=== PATIENT | male | born 2000 | race Caucasian/White ===

== ENCOUNTER 2019-06-29 00:33 | Emergency (ER) | payer MEDICAID ==
[~2019-06-29] VITALS: Ht 175.3 cm; Wt 72.7 kg
[2019-06-29 00:37] VITALS: BP 119/72
--- NOTE | 2019-06-29 00:50 | NUR ---
Police here now
[2019-06-29] MEDS ORDERED: naproxen 500mg tablet PO ONE (02:45)
[2019-06-29] MEDS ORDERED: azithromycin 250mg tablet PO ONE (02:45)
[2019-06-29] MEDS ORDERED: CefTRIAXone 1000mg IM Kit (w/lidocaine diluent) IM ONE (02:45)
--- NOTE | 2019-06-29 06:26 | NUR ---
REPORTE RECEIVED, CARE ASSUMED. PT IS SLEEPING ON LT SIDE, NO S/S OF DISTRESS NOTED.
[2019-06-29 08:54] LABS: HIV ANTIBODY 1&2 RAPID NON-REACTIVE (Neg)
[2019-06-30 09:10] LABS: HBSAG SCREEN Negative (Negative); HEP A AB, IGM Negative (Negative); HEP B CORE AB, IGM Negative (Negative); HEPATITIS C ANTIBODY <0.1 s/co ratio (0.0-0.9)
== END 2019-06-29 09:40 | disposition home or self-care (01) ==
LOC: ER 00:35
DX: T74.21XA Adult sexual abuse, confirmed, initial encounter (principal); R07.89 Other chest pain; F17.210 Nicotine dependence, cigarettes, uncomplicated; F12.90 Cannabis use, unspecified, uncomplicated; Z59.0 Homelessness; Y92.098 Other place in other non-institutional residence as the place of occurrence of the external cause
CPT/HCPCS: 36415; 80074; 86703; 87491; 87591; 96372; 99284; J0696